=== PATIENT | male | born 1940 | race Caucasian/White ===

== ENCOUNTER 2017-06-23 09:57 | Emergency (ER) | payer OTHER ==
[2009-12-19 05:33] VITALS: BMI 38.0
[2017-06-23 11:08] LABS: BASOPHILS 0.7 % (0-2); EOSINOPHILS 4.2 % (0-7); HEMATOCRIT 42.1 % (42.0-54.0); IMMATURE GRANULOCYTES 0.2 % (0-5); LYMPHOCYTES 26.3 % (15-50); MCH 30.8 pg (26.0-34.0); MCHC 33.3 g/dL (31.0-37.0); MCV 92.5 fL (80.0-100.0); MEAN PLATELET VOLUME 9.3 fL (7.4-10.4); NEUTROPHILS 60.6 % (40-80); PLATELET COUNT 183 10x3/uL (130-400); RBC 4.55 10x6/uL (4.20-6.10); RDW 13.7 % (11.5-14.5); WBC 5.5 10x3/uL (4.8-10.8)
[2017-06-23 11:11] LABS: APPEARANCE CLEAR (CLEAR); BILIRUBIN NEGATIVE (NEGATIVE); COLOR YELLOW (YELLOW); GLUCOSE 1000 mg/dL (NEGATIVE); KETONE MODERATE mg/dL (NEGATIVE); NITRITE NEGATIVE (NEGATIVE); PROTEIN NEGATIVE (NEGATIVE); SPECIFIC GRAVITY 1.015 (1.005-1.020); UROBILINOGEN NORMAL (NORMAL)
[2017-06-23 11:13] LABS: BACTERIA FEW /hpf (NONE SEEN); RED CELLS - URINE RARE /hpf (0-5)
[2017-06-23 12:12] LABS: ALBUMIN 3.7 g/dL (3.4-5.0); BILIRUBIN - TOTAL 0.7 mg/dL (0.2-1.3); CALCIUM 9.3 mg/dL (8.5-10.1); CARBON DIOXIDE 23.7 mmol/L (21.0-32.0); CREATININE - SERUM 1.1 mg/dL (0.6-1.3); POTASSIUM - SERUM 4.7 mmol/L (3.5-5.1); PROTEIN - SERUM 7.3 g/dL (6.4-8.2)
== END 2017-06-23 13:16 | disposition home or self-care (01) ==
LOC: D.ER 09:57
PROVIDERS: Nurse Practitioner Family
DX: G51.0 Bell's palsy (principal); G47.00 Insomnia, unspecified; M25.552 Pain in left hip; E11.9 Type 2 diabetes mellitus without complications; I10 Essential (primary) hypertension

== ENCOUNTER 2017-07-09 10:20 | Inpatient (IN) | payer OTHER ==
[2017-07-09] MEDS ORDERED: COREG12.5 MG PO (11:44)
[2017-07-09] MEDS ORDERED: ULTRAM50 MG PO (11:44)
[2017-07-09] MEDS ORDERED: CHLORTHALIDONE25 MG PO (11:45)
[2017-07-09] MEDS ORDERED: ATARAX 25 MG TA25 MG PO (11:46)
[2017-07-09] MEDS ORDERED: TRICOR145 MG PO (11:47)
[2017-07-09] MEDS ORDERED: GLUCOPHAGE1000 MG PO (11:48)
[2017-07-09] MEDS ORDERED: LISINOPRIL5 MG PO (11:50)
[2017-07-09] MEDS ORDERED: GLIPIZIDE10 MG PO (11:50)
[2017-07-09 11:52] VITALS: BP 126/76; BMI 36.7
[2017-07-09 12:01] LABS: BASOPHILS 0.5 % (0-2); EOSINOPHILS 4.1 % (0-7); HEMATOCRIT 38.1 % (42.0-54.0); HEMOGLOBIN 12.7 g/dL (13.5-17.5); IMMATURE GRANULOCYTES 0.2 % (0-5); LYMPHOCYTES 34.1 % (15-50); MCH 31.1 pg (26.0-34.0); MCHC 33.3 g/dL (31.0-37.0); MCV 93.2 fL (80.0-100.0); MEAN PLATELET VOLUME 9.6 fL (7.4-10.4); MONOCYTES 12.7 % (2-11); NEUTROPHILS 48.4 % (40-80); PLATELET COUNT 189 10x3/uL (130-400); RBC 4.09 10x6/uL (4.20-6.10); RDW 13.2 % (11.5-14.5)
[2017-07-09 12:18] LABS: ALBUMIN 3.4 g/dL (3.4-5.0); ANION GAP 16.7 mmol/L (8-16); BILIRUBIN - TOTAL 0.3 mg/dL (0.2-1.3); CALCIUM 9.2 mg/dL (8.5-10.1); CARBON DIOXIDE 27.1 mmol/L (21.0-32.0); CREATININE - SERUM 1.1 mg/dL (0.6-1.3); POTASSIUM - SERUM 3.8 mmol/L (3.5-5.1); PROTEIN - SERUM 6.9 g/dL (6.4-8.2)
[2017-07-09 13:03] VITALS: BP 126/76
--- NOTE | 2017-07-09 13:42 | NUR ---
RATIONALE FOR SCD'S EXPLAINED. REFUSED SCD'S AT THIS TIME
--- NOTE | 2017-07-09 14:04 | NUR ---
CM NOTE; CM NOTIFIED [facility] IN [place] AT 1:48 AND SPOKE WITH [facility] REGARDING PATIENTS ADMIT. PATIENT DOES NOT HAVE A CHOICE OF WHICH HOSPITAL TO GO TO. PATIENT WILL BE TRANSFERED ONCE BED AVAILABLE. CM WILL NEED TO CALL DAILY FOR BED AVAILABILITY. CM WILL LEAVE NOTE FOR WEEKEND CM.
--- NOTE | 2017-07-09 14:06 | NUR ---
CM NOTE; CM NOTIFIED [facility] IN [place] AT 1:48 AND SPOKE WITH RAI REGARDING PATIENTS ADMIT. PATIENT DOES NOT HAVE A CHOICE OF WHICH HOSPITAL TO GO TO. PATIENT WILL BE TRANSFERED ONCE BED AVAILABLE. CM WILL NEED TO CALL DAILY FOR BED AVAILABILITY. CM WILL LEAVE NOTE FOR WEEKEND CM. [facility]- [phone]
--- NOTE | 2017-07-09 14:14 | NUR ---
Patient Name: ALICIA CERVANTES Admission Status: Elective Accout number: [id number] Admission Date: 07-09-2017 : 1940 Admission Diagnosis: Attending: TEODORO AGUILA Current LOS: 1 Anticipated DC Date: 07-12-2017 Planned Disposition: Home Primary Insurance: MEDICARE PART A ONLY Discharge Planning Comments: CM MET WITH PATIENT REGARDING D/C NEEDS AND PLANS. PATIENT STATED HE LIVES ALONE IN A [place] AND HAS 2 STEPS TO ENTER HOME. PATIENT STATED HIS FRIEND WILL DRIVE HIM HOME AT DISCHARGE. PATIENTS PCP IS DR. AGUILA AND PHARMACY IS [facility] FOR NEW [facility]. PATIENT IS INDEPENDENT WITH HIS CARE AND HAS A CANE AND GLUCOMETER AT HOME. PATIENT STATED [facility] GET[facility] CARE [facility] AND CM CALLED [facility] AND HE DOES NOT HAVE A CHOICE WHERE TO GO. CM WILL NEED TO CALL DAILY FOR A BED AT THE [facility]. CM WILL CONTINUE TO FOLLOW PATIENT WITH D/C NEEDS AND PLANS. PCP DR. AYLA GOODMAN [facility]- [phone] ENZO HOLT (FRIEND) [phone] [facility]- [phone] Cold Rolling Coordinator: Celia Hinton Is the patient Alert and Oriented? Yes 0 * How many steps to enter\exit or inside your home? 2 0 * PCP DR. AGUILA 0 * Pharmacy [facility] 0 * Preadmission Environment Home Alone 0 * ADLs Independent 0 * Equipment Cane Glucometer 0 * List name and contact numbers for known caregivers / representatives who currently or will assist patient after discharge: ENZO HOLT (FRIEND) [phone] 0 * Community resources currently utilized None 0 * Additional services required to return to the preadmission environment? Yes 0 * Can the patient safely return to the preadmission environment? Yes 0 * Has this patient been hospitalized within the prior 30 days at any hospital? No 0 Grand Total: 0
[2017-07-09 16:45] VITALS: BP 131/72
[2017-07-09 20:00] VITALS: BP 139/77
[2017-07-09 23:29] LABS: APPEARANCE CLEAR (CLEAR); BILIRUBIN NEGATIVE (NEGATIVE); COLOR YELLOW (YELLOW); GLUCOSE 100 mg/dL (NEGATIVE); KETONE NEGATIVE (NEGATIVE); NITRITE NEGATIVE (NEGATIVE); PROTEIN NEGATIVE (NEGATIVE); UROBILINOGEN NORMAL (NORMAL)
[2017-07-10] VITALS: BP 148/86
[2017-07-10 04:00] VITALS: BP 151/74
[2017-07-10 06:26] LABS: BASOPHILS 0.6 % (0-2); HEMATOCRIT 37.3 % (42.0-54.0); HEMOGLOBIN 12.7 g/dL (13.5-17.5); IMMATURE GRANULOCYTES 0.2 % (0-5); LYMPHOCYTES 49.9 % (15-50); MCH 31.6 pg (26.0-34.0); MCV 92.8 fL (80.0-100.0); MEAN PLATELET VOLUME 9.5 fL (7.4-10.4); MONOCYTES 11.3 % (2-11); PLATELET COUNT 179 10x3/uL (130-400); RBC 4.02 10x6/uL (4.20-6.10); RDW 13.4 % (11.5-14.5); WBC 5.2 10x3/uL (4.8-10.8)
[2017-07-10 06:51] LABS: ALBUMIN 3.1 g/dL (3.4-5.0); ALKALINE PHOSPHATASE 48 U/L (46-116); BILIRUBIN - TOTAL 0.34 mg/dL (0.2-1.3); CALC OSMOLALITY 275 mosm/kg (275-300); CALCIUM 8.9 mg/dL (8.5-10.1); CHLORIDE - SERUM 97 mmol/L (98-107); CREATININE - SERUM 0.9 mg/dL (0.6-1.3); GLUCOSE 192 mg/dL (74-106); POTASSIUM - SERUM 3.9 mmol/L (3.5-5.1); PROTEIN - SERUM 6.6 g/dL (6.4-8.2); SODIUM 134 mmol/L (136-145); UREA NITROGEN 22 mg/dL (7-18); eGFR NON AFRICAN AMERICAN 88 mL/min (90-120)
[2017-07-10 06:52] LABS: ALT (SGPT) 16 U/L (10-68); CARBON DIOXIDE 17.8 mmol/L (21.0-32.0)
--- NOTE | 2017-07-10 07:50 | NUR ---
SLEEPING, NO DISTRESS NOTED, AROUSES TO VOICE, DENIES NEEDS, CALL LIGHT IN REACH, WILL CONTINUE TO MONITOR
[2017-07-10 13:15] VITALS: BP 98/55
--- NOTE | 2017-07-10 17:42 | NUR ---
PATIENT RESTING IN BED WITH GUEST AT BEDSIDE AND DENIES NEEDS AT THIS TIME. BED IN LOWEST POSITION AND CALL LIGHT WITHIN REACH. ENCOURAGED THE PATIENT TO CALL IF HE HAS NEEDS.
[2017-07-10 20:00] VITALS: BP 125/70
[2017-07-11 00:18] VITALS: BP 126/57
[2017-07-11 04:34] VITALS: BP 113/67
[2017-07-11 05:35] LABS: BASOPHILS 0.4 % (0-2); EOSINOPHILS 4.3 % (0-7); HEMATOCRIT 38.3 % (42.0-54.0); HEMOGLOBIN 12.8 g/dL (13.5-17.5); LYMPHOCYTES 34.3 % (15-50); MCH 30.9 pg (26.0-34.0); MCHC 33.4 g/dL (31.0-37.0); MCV 92.5 fL (80.0-100.0); MEAN PLATELET VOLUME 9.4 fL (7.4-10.4); MONOCYTES 12.2 % (2-11); NEUTROPHILS 48.8 % (40-80); PLATELET COUNT 167 10x3/uL (130-400); RBC 4.14 10x6/uL (4.20-6.10); RDW 13.3 % (11.5-14.5); WBC 4.9 10x3/uL (4.8-10.8)
[2017-07-11 05:56] LABS: ALBUMIN 3.2 g/dL (3.4-5.0); ALKALINE PHOSPHATASE 48 U/L (46-116); ALT (SGPT) 14 U/L (10-68); BILIRUBIN - TOTAL 0.46 mg/dL (0.2-1.3); CALC OSMOLALITY 276 mosm/kg (275-300); CALCIUM 9.2 mg/dL (8.5-10.1); CHLORIDE - SERUM 99 mmol/L (98-107); GLUCOSE 156 mg/dL (74-106); PROTEIN - SERUM 6.9 g/dL (6.4-8.2); SODIUM 136 mmol/L (136-145); UREA NITROGEN 18 mg/dL (7-18); eGFR NON AFRICAN AMERICAN 78 mL/min (90-120)
[2017-07-11 05:57] LABS: CARBON DIOXIDE 26.8 mmol/L (21.0-32.0)
--- NOTE | 2017-07-11 07:20 | NUR ---
RECEIVED REPORT. ASSUMED CARE OF PATIENT. RESTING ON RIGHT LATERAL SIDE. RESP EVEN AND UNLAOBRED. EASILY AROUSED. NO DISTRESS. DENIES NEEDS.
[2017-07-11 09:01] VITALS: BP 125/81
[2017-07-11 11:51] VITALS: BP 107/65
--- NOTE | 2017-07-11 11:54 | NUR ---
FSBS 162. 2 UNITS HUMULIN ADMINISTERED PER SLIDING SCALE. NO DISTRESS.
--- NOTE | 2017-07-11 16:41 | NUR ---
FSBS 152. 2 UNITS HUMULIN ADMINISTERED PER SLIDING SCALE.
[2017-07-11 16:49] VITALS: BP 106/67
--- NOTE | 2017-07-11 18:13 | NUR ---
PATIENT SITTING IN CHAIR AT BEDSIDE. DENIES NEEDS. CALL LIGHT WITHIN REACH. NO DISTRESS.
--- NOTE | 2017-07-11 19:55 | NUR ---
PATIENT RESTNG IN BED AND DENIES NEEDS AT THIS TIME. BED IN LOWEST POSITION AND CALL LIGHT WITHIN REACH. ENCOURAGED THE PT TO CALL IF HE HAS NEEDS.
[2017-07-11 20:00] VITALS: BP 101/55
[2017-07-12] VITALS (7 sets, daily range): BP systolic 98–142; BP diastolic 44–81
--- NOTE | 2017-07-12 08:32 | NUR ---
REC'D SITTING UP IN CHAIR IN ROOM AWAKE AND ALERT. RESP EVEN AND UNLABORED WITH NO DISTRESS NOTED. CAN EXPRESS NEEDS AND WANTS. ASSESSMENT COMPLETED. C/L IN REACH AT BEDSIDE.
--- NOTE | 2017-07-12 10:28 | NUR ---
MARICHUY REASSESSMENT NOTE; MARICHUY CALLED THE [facility] (RAI) REGARDING D/C TO REHAB. [facility] WAS NOTIFYING [facility] REGARDING PATIENT. RAI STATED SHE WOULD CALL MARICHUY BACK ONCE SHE HAS SPOKEN WITH THE REHAB DEPARTMENT.
--- NOTE | 2017-07-12 13:00 | NUR ---
PT SITTING IN CHAIR NEXT TO BED, EYES CLOSED, EVEN RISE AND FALL OF CHEST. PT STATED HAS NOT SLEPT THIS GGOD SINCE EYE HAS BEEN HURTING HIM. C/L ON BEDSIDE TABLE, NO NEEDS AT THIS TIME. CONTINUE WITH CARE PLAN
--- NOTE | 2017-07-12 21:00 | NUR ---
PATIENT RESTING IN BED AND DENIES NEEDS AT THIS TIME. PT DENIES NEEDS AT THIS TIME. ADMINISTERED MEDS. BED IN LOWEST POSITION AND CALL LIGHT WITHIN REACH. ENCOURAGED THE PT TO CALL IF HE HAS NEEDS.
[2017-07-13 04:00] VITALS: BP 118/58
[2017-07-13 08:15] VITALS: BP 133/79
--- NOTE | 2017-07-13 09:00 | NUR ---
ASSISTED PT IN FILLING OUT HIS MENU DUE TO HIS TROUBLE SEEING.
--- NOTE | 2017-07-13 10:00 | NUR ---
PT IS SITTING UP IN CHAIR THIS AM. TOLERATING WELL. HE OFFERS NO COMPLAINTS.
--- NOTE | 2017-07-13 11:12 | NUR ---
MR CERVANTES IS LYING IN BED. HE OFFERS NO COMPLAINTS. HE IS WAITING ON HIS BREAKFAST. GEN- AWAKE AND ALERT. HE HAS A LEFT FACIAL DROOP. LUNGS- CLEAR. HEART- RRR. ABD- OBESE. SOFT WITHOUT TENDERNESS. BS+. EXT WITH MINIMAL EDEAM LE NOTED. HE HAS TELEMETRY NOTED NSR THIS AM. LEFT FOREARM WITH SALINE LOCK, PATENT. HIS BS THIS AM WAS 115. HE HAS HIS SCD'S OFF AT THIS TIME. BED IS LOW, SIDE RAILS UP X 2, CALL LIGHT IN REACH.
--- NOTE | 2017-07-13 11:28 | NUR ---
BS TAKEN. BS WAS 127.
[2017-07-13 11:57] VITALS: BP 108/68
--- NOTE | 2017-07-13 14:21 | NUR ---
CM REASSESSMENT NOTE: KATHY ([employer] APPRENTICE AT [facility]) CALLED AND STATED THERE WOULD NOT BE A BED READY UNTIL WEDNESDAY. CM ASKED IF PATIENT COULD D/C TO ANOTHER REHAB AND SHE STATED [facility] PROBABLY NOT [facility]Y. CM NOTIFIED DR. AGUILA. CM WAITING ON KATHY TO CALL TOMORROW FOR UPDATE.
--- NOTE | 2017-07-13 14:24 | NUR ---
PT IS GETTING UP TO TAKE A SHOWER. HE ATE HIS LUNCH AND TOLERATED WELL.
--- NOTE | 2017-07-13 15:32 | NUR ---
PT IS RECLINED IN RECLINER AFTER SHOWER. HE STATES THAT HE FEELS BETTER. ATARAX GIVEN PO ORDERED. CALL LIGHT IN REACH.
--- NOTE | 2017-07-13 16:30 | NUR ---
PTS BS WAS 185. 2 UNITS OF HUMULIN N GIVEN SUBCU LEFT ARM. PAUL BAINS WITNESSED.
[2017-07-13 16:51] VITALS: BP 124/68
--- NOTE | 2017-07-13 18:15 | NUR ---
PT IS RESTING IN BED. HE OFFERS NO COMPLAINTS. BED IS LOW, SIDE RAILS UP X 2 AND CALL LIGHT IN REACH.
--- NOTE | 2017-07-13 19:33 | NUR ---
PT SEEN AND ASSESSED. STILL LEFT EYE DROOP AND STATES HAS CATARACT IN RIGHT EYE. NO COMPLAINTS AT PRESENT. BLOOD SUGARS BETTER TODAY. HAS NOT EATEN DINNER AT PRESENT-ENCOURAGED TO EAT SO BLOOD SUGAR DOES NOT GET TOO LOW/HIGH. CALL LIGHT IN REACH
[2017-07-13 21:30] VITALS: BP 120/73
--- NOTE | 2017-07-14 00:09 | NUR ---
PT IS LYING ON LEFT SIDE, EYES ARE CLOSED, EVEN RISE AND FALL OF CHEST. NO SIGNS OF DISTRESS. BED IN LOW POSITION, CALL LIGHT IN REACH CONTINUE WITH PLAN OF CRE
[2017-07-14 00:26] VITALS: BP 122/62
[2017-07-14 04:44] VITALS: BP 128/64
--- NOTE | 2017-07-14 07:35 | NUR ---
PT RECEIVED THIS AM, SITTING UP IN CHAIR. . HE OFFERS NO COMPLAINTS THIS AM. STATES HE IS HAVING PAIN WHICH IS ABOUT A 3-4. THIS IS HIS USUAL PAIN. HE STATES THAT HE DOES NOT NEED ANYTHING AT THIS TIME. GEN- AWAKE AND ALERT- LUNGS- CLEAR. HEART- RRR. ABD- OBESE, SOFT BS+. EXT- 1 + EDEMA NOTED. BED IS LOW, SIDE RAILS UP X 2 AND CALL LIGHT IN REACH.
[2017-07-14 08:06] VITALS: BP 129/87
--- NOTE | 2017-07-14 10:12 | NUR ---
AM MEDS GIVEN, SCD'S PUT BACK ON. TELEMETRY ALSO INTACT. PT HAS NO COMPLAINTS AT THIS TIME. HE IS LYING IN BED, RESTING.
--- NOTE | 2017-07-14 11:35 | NUR ---
PTS BS WAS CHECKED. PTS BS WAS 108.
[2017-07-14 12:27] VITALS: BP 106/69
--- NOTE | 2017-07-14 14:34 | NUR ---
CM REASSESSMENT NOTE: KATHY CALLED AND STATED PATIENT DID NOT MEET [facility]ITER[facility] FOR REHAB. CM CALLED [facility] ([facility]) WITH [facility] AND SHE IS TRYING TO GET HIM FOR SAFETY TEACHING. CLINICALS FAXED TO [facility]/WAITING OFFICE LEAD BACK.
--- NOTE | 2017-07-14 14:48 | NUR ---
PT IS SLEEPING IN BED. SIDE RAILS UP X 2 AND CALL LIGHT IN REACH. BED IS LOW.
[2017-07-14 15:53] VITALS: BP 121/68
--- NOTE | 2017-07-14 16:30 | NUR ---
PT HAS BEEN SLEEPING THIS AFTERNOON. BED IS LOW, SIDE RAILS UP X 2 AND CALL LIGHT IN REACH.
--- NOTE | 2017-07-14 17:22 | NUR ---
PTS MEDS GIVEN. HIS BS EARLIER WAS 104. HIS DINNER IS SERVED.
[2017-07-14 20:00] VITALS: BP 129/75
--- NOTE | 2017-07-14 21:40 | NUR ---
REC'D LYING IN BED. ALERT AND ORIENTED X4. DENIED PAIN AT THIS TIME. DENIED NEEDS AT THIS TIME. INSTRUCTED TO CALL IF NEEDED ANYTHING, VERBALIZED UNDERSTANDING. NO DISTRESS NOTED. BED LOW, LOCKED, CALL LIGHT IN REACH. WILL CONT TO AD.
[2017-07-15] VITALS: BP 125/65
--- NOTE | 2017-07-15 00:57 | NUR ---
PT UP IN CHAIR AT THIS TIME. DENIES ANY NEEDS. CALL LIGHT IN REACH.
[2017-07-15 04:00] VITALS: BP 135/74
--- NOTE | 2017-07-15 07:45 | NUR ---
MR CERVANTES IS SITTING UP IN CHAIR. HE IS WAITING ON HIS BREAKFAST. HE OFFERS NO COMPLAINTS THIS AM. SALINE LOCK PATENT LEFT FOREARM. GEN- AWAKE AND ALERT. LUNGS- CLEAR. HEART- RRR. ABD- OBESE, BS+. EXT- NO EDEMA NOTED. BE IS LOW, SIDE RAILS UP X 2 AND CALL LIGHT IN REACH. BED IS LOW.
[2017-07-15 08:16] VITALS: BP 124/83
--- NOTE | 2017-07-15 12:14 | NUR ---
PT IS SITTING UP IN CHAIR. HE OFFERS NO COMPLAINTS. HIS BS IS 149. NO INSULIN GIVEN.
[2017-07-15 12:33] VITALS: BP 113/80
--- NOTE | 2017-07-15 13:50 | NUR ---
CM REASSESSMENT NOTE: PATIENT HAS BEEN ACCEPTED TO [facility] A SKILLED BED FOR SAFETY TEACHING. [facility] WILL PICK PATIENT UP AROUND [phone] PER [facility]Y ([facility]OR[facility]).
--- NOTE | 2017-07-15 15:41 | NUR ---
PT IS SITTING UP IN CHAIR. DISCHARGE INSTRUCTIONS GIVEN. PT IS READY WHEN [facility] GETS HERE TO PICK HIM UP. HE IS GOING TO THE [facility].
== END 2017-07-15 17:45 | DRG 123 ==
LOC: D.SDCHOLD 10:20 → D.MS 10:20
PROVIDERS: ADMIT Family Medicine
DX: H49.02 Third [oculomotor] nerve palsy, left eye (principal); R29.810 Facial weakness; H53.2 Diplopia; I10 Essential (primary) hypertension; I25.10 Atherosclerotic heart disease of native coronary artery without angina pectoris; R26.89 Other abnormalities of gait and mobility

== ENCOUNTER 2018-08-10 08:39 | Emergency (ER) | payer OTHER ==
[~2018-08-10] VITALS: Ht 182.9 cm; Wt 122.7 kg
[~2018-08-10 08:39] MED LIST: ATARAX 25 MG TA25 MG PO; CHLORTHALIDONE25 MG PO; COREG12.5 MG PO; GLIPIZIDE10 MG PO; GLUCOPHAGE1000 MG PO; LISINOPRIL5 MG PO; TRICOR145 MG PO; ULTRAM50 MG PO
[2018-08-10 09:12] VITALS: BP 174/100; Ht 182.9 cm; Wt 122.7 kg
[2018-08-10 10:05] LABS: ALBUMIN 3.3 g/dL (3.4-5.0); ALKALINE PHOSPHATASE 65 U/L (46-116); BILIRUBIN - TOTAL 0.46 mg/dL (0.2-1.3); CALCIUM 8.7 mg/dL (8.5-10.1); CHLORIDE - SERUM 96 mmol/L (98-107); CREATININE - SERUM 0.9 mg/dL (0.6-1.3); POTASSIUM - SERUM 4.1 mmol/L (3.5-5.1); PROTEIN - SERUM 7.6 g/dL (6.4-8.2); SODIUM 132 mmol/L (136-145); UREA NITROGEN 12 mg/dL (7-18); eGFR NON AFRICAN AMERICAN 87 mL/min (90-120)
[2018-08-10 10:10] LABS: BASOPHILS 0.8 % (0-2); EOSINOPHILS 6.3 % (0-7); HEMATOCRIT 37.6 % (42.0-54.0); HEMOGLOBIN 12.7 g/dL (13.5-17.5); IMMATURE GRANULOCYTES 0.3 % (0-5); LYMPHOCYTES 27.7 % (15-50); MCH 30.7 pg (26.0-34.0); MCHC 33.8 g/dL (31.0-37.0); MCV 90.8 fL (80.0-100.0); MEAN PLATELET VOLUME 9.5 fL (7.4-10.4); MONOCYTES 9.9 % (2-11); PLATELET COUNT 197 10x3/uL (130-400); RBC 4.14 10x6/uL (4.20-6.10); RDW 13.9 % (11.5-14.5); WBC 6.1 10x3/uL (4.8-10.8)
[2018-08-10 10:23] LABS: CALC OSMOLALITY 281 mosm/kg (275-300)
[2018-08-10 10:33] LABS: GLUCOSE 402 mg/dL (74-106)
[2018-08-10 10:39] LABS: ALT (SGPT) 86 U/L (10-68)
== END 2018-08-10 12:40 | disposition left against medical advice (07) ==
LOC: D.ER 08:39
PROVIDERS: Emergency Medicine
DX: B34.9 Viral infection, unspecified (principal); R09.89 Other specified symptoms and signs involving the circulatory and respiratory systems; E11.9 Type 2 diabetes mellitus without complications; I10 Essential (primary) hypertension